=== PATIENT | female | born 1945 | race Native Hawaiian/Other Pacific Islander ===

== ENCOUNTER 2018-03-13 20:48 | Emergency (ER) | payer OTHER ==
[~2018-03-13] VITALS: Ht 165.1 cm; Wt 70.3 kg
[2018-03-13 22:54] LABS: PLATELET COUNT 255 K/uL (152-353)
[2018-03-13 22:59] LABS: POTASSIUM 4.8 mmol/L (3.6-5.2)
[2018-03-14] VITALS: BP 135/79; TEMP 98.6
[2018-03-14] MEDS ORDERED: REMERON SOLTAB15 MG PO (02:37)
[2018-03-14] MEDS ORDERED: ACID CONTROL MA20 MG PO (02:38)
[2018-03-14] MEDS ORDERED: CARV3.12 PO (02:39)
[2018-03-14] MEDS ORDERED: DOCU100C10 PO (02:40)
[2018-03-14] MEDS ORDERED: PREDNISONE10 M1 PO (02:41)
[2018-03-14] MEDS ORDERED: POLYETH GLYC3350 NF PO (02:44)
[2018-03-14] MEDS ORDERED: ARIPIPRAZOLE30 MG PO (02:46)
[2018-03-14] MEDS ORDERED: LAMICTAL25 MG PO (02:48)
[2018-03-14] MEDS ORDERED: LORA0.5T17 PO (02:50)
[2018-03-14] MEDS ORDERED: AMLODIPINE BESYLATE PO (02:51)
[2018-03-14] MEDS ORDERED: METOCLOPRAMIDE O5 MG PO (02:52)
[2018-03-14] MEDS ORDERED: CALCIUM PO (03:17)
[2018-03-14] MEDS ORDERED: VITAMIN PO (03:17)
[2018-03-14] MEDS ORDERED: [UNRECOGNIZED DRUG - OTHER] PO (03:20)
[2018-04-03] MEDS ORDERED: SILV1CRE EX (08:55)
[2018-04-03] MEDS ORDERED: METR250T19 PO (08:55)
[2018-04-03] MEDS ORDERED: ZINC220C4 PO (08:55)
[2018-04-03] MEDS ORDERED: ASCO500T18 PO (08:55)
[2018-04-03] MEDS ORDERED: MULTTAB52 PO (08:55)
[2018-04-08] MEDS ORDERED: FURO40TA93 PO (15:21)
[2018-04-08] MEDS ORDERED: PRED10TA27 PO (15:21)
[2018-04-08] MEDS ORDERED: DUONEB 0.5-2.5MG/3ML INH (15:21)
[2018-04-08] MEDS ORDERED: INSUINJ20 SC (15:21)
[2018-04-08] MEDS ORDERED: ONDA4TAB3 PO (15:21)
[2018-04-08] MEDS ORDERED: POTA20TA4 PO (15:21)
[2018-04-08] MEDS ORDERED: [UNRECOGNIZED DRUG - CODE] TOP (15:21)
[2018-04-20] MEDS ORDERED: ONDA4TAB3 PO (09:32)
[2018-04-21] MEDS ORDERED: PANTOPRAZOLE 40MG TA PO (07:03)
[2018-04-21] MEDS ORDERED: ARIPIPRAZOLE30 MG PO (07:03)
[2018-04-21] MEDS ORDERED: LAMICTAL25 MG PO (07:03)
[2018-04-21] MEDS ORDERED: CARV3.12 PO (07:04)
[2018-04-21] MEDS ORDERED: ASCO500T18 PO (07:04)
[2018-04-21] MEDS ORDERED: AMLODIPINE BESYLATE PO (07:04)
[2018-04-21] MEDS ORDERED: DIVALPROEX500 M1 PO (07:05)
[2018-04-21] MEDS ORDERED: DOCU100C10 PO (07:05)
[2018-04-21] MEDS ORDERED: DUONEB 0.5-2.5MG/3ML INH (07:05)
[2018-04-21] MEDS ORDERED: INSUINJ20 SC (07:07)
[2018-04-21] MEDS ORDERED: METOCLOPRAMIDE O5 MG PO (07:08)
[2018-04-21] MEDS ORDERED: MULTTAB52 PO (07:11)
[2018-04-21] MEDS ORDERED: [UNRECOGNIZED DRUG - CODE] TOP (07:11)
[2018-04-21] MEDS ORDERED: NYST100016 TOP (07:11)
[2018-04-21] MEDS ORDERED: SILVADENE1 % EX (07:12)
[2018-04-21] MEDS ORDERED: POLYETH GLYC3350 NF PO (07:12)
[2018-04-21] MEDS ORDERED: PRED10TA27 PO (07:12)
[2018-04-21] MEDS ORDERED: ZINC220C4 PO (07:13)
== END 2018-03-14 | disposition other institution (70) ==
LOC: ED 20:48
PROVIDERS: Internal Medicine
DX: F31.89 Other bipolar disorder (principal); R45.1 Restlessness and agitation; I10 Essential (primary) hypertension; Z04.6 Encounter for general psychiatric examination, requested by authority
CPT/HCPCS: 36415; 80053; 81000; 85027; 87077; 87086; 87088; 87186; 93005; 99285

== ENCOUNTER 2018-03-26 08:24 | Inpatient (IN) | payer OTHER ==
[2018-03-26] VITALS (25 sets, daily range): BP systolic 99–137; BP diastolic 48–96; TEMP 99.3–100.4; Ht 165.1 cm; Wt 80.3 kg
[~2018-03-26] VITALS: Ht 165.1 cm; Wt 80.3 kg
[~2018-03-26 08:24] MED LIST: ACID CONTROL MA20 MG PO; AMLODIPINE BESYLATE PO; ARIPIPRAZOLE30 MG PO; CALCIUM PO; CARV3.12 PO; DOCU100C10 PO; LAMICTAL25 MG PO; LORA0.5T17 PO; METOCLOPRAMIDE O5 MG PO; POLYETH GLYC3350 NF PO; PREDNISONE10 M1 PO; REMERON SOLTAB15 MG PO; VITAMIN PO; [UNRECOGNIZED DRUG - OTHER] PO
[2018-03-26 09:47] LABS: POTASSIUM 4.6 mmol/L (3.6-5.2)
[2018-03-26 13:01] LABS: PLATELET COUNT 200 K/uL (152-353)
[2018-03-27] VITALS (21 sets, daily range): BP systolic 98–146; BP diastolic 39–98; TEMP 97.7–100.2
[2018-03-27 08:12] LABS: PLATELET COUNT 166 K/uL (152-353)
[2018-03-27 09:22] LABS: POTASSIUM 3.8 mmol/L (3.6-5.2)
[2018-03-28] VITALS (23 sets, daily range): BP systolic 110–179; BP diastolic 43–86; TEMP 99–100
[2018-03-28 06:40] LABS: PLATELET COUNT 193 K/uL (152-353)
[2018-03-28 07:25] LABS: POTASSIUM 2.9 mmol/L (3.6-5.2)
[2018-03-29] VITALS (25 sets, daily range): BP systolic 106–187; BP diastolic 7–96; TEMP 97–101.8
[2018-03-29 06:57] LABS: PLATELET COUNT 185 K/uL (152-353)
[2018-03-29 07:12] LABS: POTASSIUM 2.8 mmol/L (3.6-5.2)
[2018-03-30] VITALS (23 sets, daily range): BP systolic 121–195; BP diastolic 65–110; TEMP 97.2–98.2
[2018-03-30 06:29] LABS: PLATELET COUNT 178 K/uL (152-353)
[2018-03-30 06:44] LABS: POTASSIUM 3.7 mmol/L (3.6-5.2)
[2018-03-31] VITALS (23 sets, daily range): BP systolic 135–191; BP diastolic 61–95; TEMP 97.8–99.5
[2018-03-31 06:40] LABS: POTASSIUM 3.5 mmol/L (3.6-5.2)
[2018-03-31 07:24] LABS: PLATELET COUNT 212 K/uL (152-353)
[2018-03-31] MEDS ORDERED: LORA0.5T17 PO (18:43)
[2018-04-01] VITALS (22 sets, daily range): BP systolic 133–164; BP diastolic 63–89; TEMP 97.9–98.6
[2018-04-01 06:50] LABS: PLATELET COUNT 255 K/uL (152-353)
[2018-04-01 07:16] LABS: POTASSIUM 2.9 mmol/L (3.6-5.2)
[2018-04-01] MEDS ORDERED: DIVALPROEX500 M1 PO (21:13)
[2018-04-01] MEDS ORDERED: TRAZ100T PO (21:17)
[2018-04-02] VITALS (22 sets, daily range): BP systolic 140–168; BP diastolic 71–97; TEMP 98–98.9
[2018-04-02 08:15] LABS: PLATELET COUNT 371 K/uL (152-353)
[2018-04-02 08:40] LABS: POTASSIUM 3.2 mmol/L (3.6-5.2)
[2018-04-03] VITALS (12 sets, daily range): BP systolic 134–159; BP diastolic 63–102; TEMP 97.9–98.5
[2018-04-03 05:55] LABS: PLATELET COUNT 385 K/uL (152-353)
[2018-04-03 06:18] LABS: POTASSIUM 4.4 mmol/L (3.6-5.2)
[2018-04-03] MEDS ORDERED: ZINC220C4 PO (08:55)
[2018-04-03] MEDS ORDERED: MULTTAB52 PO (08:55)
[2018-04-03] MEDS ORDERED: SILV1CRE EX (08:55)
[2018-04-03] MEDS ORDERED: ASCO500T18 PO (08:55)
[2018-04-03] MEDS ORDERED: METR250T19 PO (08:55)
[2018-04-08] MEDS ORDERED: FURO40TA93 PO (15:21)
[2018-04-08] MEDS ORDERED: [UNRECOGNIZED DRUG - CODE] TOP (15:21)
[2018-04-08] MEDS ORDERED: PRED10TA27 PO (15:21)
[2018-04-08] MEDS ORDERED: INSUINJ20 SC (15:21)
[2018-04-08] MEDS ORDERED: DUONEB 0.5-2.5MG/3ML INH (15:21)
[2018-04-08] MEDS ORDERED: POTA20TA4 PO (15:21)
[2018-04-08] MEDS ORDERED: ONDA4TAB3 PO (15:21)
[2018-04-20] MEDS ORDERED: ONDA4TAB3 PO (09:32)
[2018-04-21] MEDS ORDERED: LAMICTAL25 MG PO (07:03)
[2018-04-21] MEDS ORDERED: ARIPIPRAZOLE30 MG PO (07:03)
[2018-04-21] MEDS ORDERED: PANTOPRAZOLE 40MG TA PO (07:03)
[2018-04-21] MEDS ORDERED: AMLODIPINE BESYLATE PO (07:04)
[2018-04-21] MEDS ORDERED: CARV3.12 PO (07:04)
[2018-04-21] MEDS ORDERED: ASCO500T18 PO (07:04)
[2018-04-21] MEDS ORDERED: DOCU100C10 PO (07:05)
[2018-04-21] MEDS ORDERED: DUONEB 0.5-2.5MG/3ML INH (07:05)
[2018-04-21] MEDS ORDERED: DIVALPROEX500 M1 PO (07:05)
[2018-04-21] MEDS ORDERED: INSUINJ20 SC (07:07)
[2018-04-21] MEDS ORDERED: METOCLOPRAMIDE O5 MG PO (07:08)
[2018-04-21] MEDS ORDERED: MULTTAB52 PO (07:11)
[2018-04-21] MEDS ORDERED: NYST100016 TOP (07:11)
[2018-04-21] MEDS ORDERED: [UNRECOGNIZED DRUG - CODE] TOP (07:11)
[2018-04-21] MEDS ORDERED: SILVADENE1 % EX (07:12)
[2018-04-21] MEDS ORDERED: POLYETH GLYC3350 NF PO (07:12)
[2018-04-21] MEDS ORDERED: PRED10TA27 PO (07:12)
[2018-04-21] MEDS ORDERED: ZINC220C4 PO (07:13)
== END 2018-04-03 12:05 | disposition other institution (70) | DRG 291 ==
LOC: ICU 08:24
PROVIDERS: Emergency Medicine; ADMIT Nurse Practitioner Family
PROC: 30243N1 Transfusion of Nonautologous Red Blood Cells into Central Vein, Percutaneous Approach (ICD-10-PCS; principal; 2018-03-29)
PROC: 05HM33Z Insertion of Infusion Device into Right Internal Jugular Vein, Percutaneous Approach (ICD-10-PCS; 2018-03-29)
DX: I50.31 Acute diastolic (congestive) heart failure (principal); J18.8 Other pneumonia, unspecified organism; J93.83 Other pneumothorax; J44.0 Chronic obstructive pulmonary disease with (acute) lower respiratory infection; G40.802 Other epilepsy, not intractable, without status epilepticus; E27.1 Primary adrenocortical insufficiency; L03.115 Cellulitis of right lower limb; N89.8 Other specified noninflammatory disorders of vagina; E88.09 Other disorders of plasma-protein metabolism, not elsewhere classified; D64.89 Other specified anemias; E87.6 Hypokalemia; E83.42 Hypomagnesemia; I10 Essential (primary) hypertension; I69.891 Dysphagia following other cerebrovascular disease; R13.19 Other dysphagia; F03.90 Unspecified dementia, unspecified severity, without behavioral disturbance, psychotic disturbance, mood disturbance, and anxiety; E11.9 Type 2 diabetes mellitus without complications; L89.151 Pressure ulcer of sacral region, stage 1; L89.322 Pressure ulcer of left buttock, stage 2; L89.312 Pressure ulcer of right buttock, stage 2
CPT/HCPCS: 36415; 36591; 36600; 80053; 80200; 80202; 81000; 82272; 82550; 82805; 82962; 83605; 83735; 83880; 84484; 85014; 85018; 85027; 86850; 86900; 86901; 86922; 87040; 93005; 94640; 94664; 94760; C1768; J0696; J1200; J1885; J1940; J1956; J2060; J2543; J2920; J3260; J3370; J3475; J3480; J3486; J3490; P9016; P9047

== ENCOUNTER 2018-04-08 16:11 | Inpatient (IN) | payer OTHER ==
[~2018-04-08] VITALS: Ht 33 cm; Wt 73.0 kg
[~2018-04-08 16:11] MED LIST changes: +ASCO500T18 PO; +DIVALPROEX500 M1 PO; +DUONEB 0.5-2.5MG/3ML INH; +FURO40TA93 PO; +INSUINJ20 SC; +METR250T19 PO; +MULTTAB52 PO; +ONDA4TAB3 PO; +POTA20TA4 PO; +PRED10TA27 PO; +SILV1CRE EX; +TRAZ100T PO; +ZINC220C4 PO; +[UNRECOGNIZED DRUG - CODE] TOP
[2018-04-08 17:15] VITALS: BP 131/64
--- NOTE | 2018-04-08 17:30 | NUR ---
RCD PT ALERT RESTLESS EATING 100% DINNER DAUGHTER CALLEDD O2 DECREASED TO 3L
[2018-04-08 19:00] VITALS: BP 124/60
[2018-04-08 20:00] VITALS: BP 117/59; TEMP 98
--- NOTE | 2018-04-08 20:00 | NUR ---
EATING DINER 100% ALERT CALLING FOR DAUGHTER.MONITOR ST BBB DENIES PAIN SOB. 2200 WATCHING TV O2 AT 2L NO CHANGE DENIES PAIN OR SSOB.
[2018-04-08 21:00] VITALS: BP 122/63
[2018-04-08 22:00] VITALS: BP 120/60
[2018-04-08 23:00] VITALS: BP 121/63
--- NOTE | 2018-04-08 23:00 | NUR ---
MONITOR SR/BBB O2 96 %.
[2018-04-09] VITALS (23 sets, daily range): BP systolic 106–143; BP diastolic 52–86; TEMP 97.5–99.5
--- NOTE | 2018-04-09 | NUR ---
TURNED AND POSITIONED MONITOR SR/BBB LAN LEROY
--- NOTE | 2018-04-09 01:00 | NUR ---
RESTING NO C/O PAIN OR SOB O2 2L
--- NOTE | 2018-04-09 02:00 | NUR ---
NO CHANGE RESTING O2 SAT 96
--- NOTE | 2018-04-09 03:09 | NUR ---
RESTING SHORT INTERVALS MONITOR SR O2 2L 2SAT 94
--- NOTE | 2018-04-09 04:00 | NUR ---
MONITOR SR O2SAT 97 N C/O RRSTING O2 AT2L R
[2018-04-09 09:00] LABS: PLATELET COUNT 291 K/uL (152-353)
[2018-04-09 09:24] LABS: POTASSIUM 4.7 mmol/L (3.6-5.2)
--- NOTE | 2018-04-09 11:14 | NUR ---
BLOOD GAS OBTAINED ORDERED AND REPORTED AND WAS TOLD BY SUNDAY KENNEY THAT WE COULD HOLD BIPAP.
--- NOTE | 2018-04-09 12:30 | NUR ---
PT UP IN BED AWAKE TOOK SHORT NAPS, ALERT ASSISTED WITH LUNCH TRAY ATE ABOUT 25 % DARCIE WELL.
--- NOTE | 2018-04-09 15:11 | NUR ---
PT RESTING IN BED, RECIEVED ZOFRAN FOR C/O OF NAUSEA NO VOMITING. DAUGHTER HERE VISITED, BROUGHT PT A COKE TOOK A FEW SIPS DARCIE OK NO COUGH AFTERWARDS. HOB UP. ASSIST NEEDED.
--- NOTE | 2018-04-09 16:18 | NUR ---
PT TURNED AND REPOSITIONED. PT BEGAN CALLING OUT. INC OF BM PT TURNED ON SIDE YELLING OUT, DOES NOT WANT TO BE MOVED. SKIN CARE NOTED ADULT DIAPER WET. NOTED MONTENEGRO HAS COME OUT BALLOON DEFLATED. JOI CARE REPORT TO SUNDAY KEY. WILL LEAVE MONTENEGRO CATH OUT FOR NOW.
--- NOTE | 2018-04-09 17:04 | NUR ---
PATIENT GETTING AGITATED, CALLING WANTS DINNER TRAY WANTS HER CANDY BAR. INCREASED AGITATION. SPOKE WITH BERENICE DURAN. MEDS REORDERED. PT C/O ITCHING WITH GIVE MED FOR ITCHING.
--- NOTE | 2018-04-09 18:36 | NUR ---
PT UP IN BED SPOKE WITH DR ZUNIGA. RECIEVED NEW ORDERS. PT RESTING IN BED HOB UP. PT TALKING, KEEPS REPEARTING HERSELF. PT WANTED TO WAIT AND EAT DINNER LATER.
--- NOTE | 2018-04-09 20:04 | NUR ---
PT IS YELLING CONSTANTLY. PT IS BIPOLAR AND FROM [facility]. PT HAS BEEN GIVEN DEMEROL 25 MG IVSP EARLIER FOR COMPLAINTS OF PAIN. CM WITH SR AND BP STABLE. O2 SATS ARE 99 PERCENT AND PT IS USING OXYGEN VIA NC.
--- NOTE | 2018-04-09 20:56 | NUR ---
PT IS CONSISTANTLY TALKING AND SAYING SAME THINGS OVER AND OVER. ATTEMPT TO ORIENT PT. UNSUCCESSFUL.
--- NOTE | 2018-04-09 22:05 | NUR ---
PT WAS TURNED AND REPOSITIONED TO HER LEFT SIDE. COCCYX IS RED STAGE 2 AND IS BLEEDING.
--- NOTE | 2018-04-09 23:47 | NUR ---
PT STILL CONTINUES TO TALK AND YELL. CONFUSED. CONTINUES TO REPEAT HERSELF OVER AND OVER. ATTEMP MAD TO REORIENT PT BUT SHE DOESNT UNDERSTAND.
[2018-04-10] VITALS (19 sets, daily range): BP systolic 100–135; BP diastolic 40–96; TEMP 98–99.3
--- NOTE | 2018-04-10 01:22 | NUR ---
C/O OF PAIN. MEDICATED WITH DEMEROL 25 MG SIVP. PT REFUSES TO TURN IN BED TO BE CHANGED OF SOILED CHUX. PT REFUSES ANY SIDE TO SIDE MOVEMENT WITH 1 PERSON ASSIST.
--- NOTE | 2018-04-10 01:35 | NUR ---
PT WAS CLEANED AND NEW CHUX AND ADULT DEPENDS WERE APPLIED. PT WITH REDNESS TO COCCYX AND STAGE 2 DECUBITUS. PT IS TOTAL ASSIST AND WILL NOT MOVE LOWER EXT. 2 PERSON ASSIST TO CHANGE PT. ORAL CARE GIVEN. PT STILL WITH CONFUSION AND REPEATS SENTENCES OVER AND OVER.
--- NOTE | 2018-04-10 03:53 | NUR ---
PT HAS RESTED WITH EYES CLOSED LAST 2 HOURS. O2 SAT IS 99 PERCENT.
--- NOTE | 2018-04-10 08:28 | NUR ---
PATIENT AWAKE TALKING, PATIENT REPEATS HERSELF OFTEN. PATIENT TURNED AND REPOSITIONED INC OF BM AND URINE PATIENT CLEANED WIPED WITH THERAWORX WIPES APPLIED CALAZIME OINT TO BUTTOCKS, RED AREAS COCCYX INNER LEGS GROIN. BREAKDOWN JOI CARE DONE. PATIENT REFUSES TO BE TURNED PUSHING AGAINT NURSE YELLING OUT. PATIENT REFUSED LABS AND REFUSING BREAKFAST THIS AM. DR MUÑOZ STOPPED BY RECIEVED REPORT NO NEW ORDERS.
--- NOTE | 2018-04-10 10:17 | NUR ---
PT RECIEVED HER MEDS EARLIER DARCIE WELL. TAKING PO FLUIDS WELL. REFUSING BREAKFAST. RECIEVED ORDERS FOR ABG. ASSISTED RESP DEPT DRAWING ABG, GOOD BLOOD RETURN NAIMA AM LABS ALONG WITH BLOOD DRAW X 1 STICK PT DARCIE WELL. COOPERATIVE.
[2018-04-10 10:18] LABS: PLATELET COUNT 286 K/uL (152-353)
--- NOTE | 2018-04-10 10:30 | NUR ---
C/O OF NAUSEA, NO VOMITING RECIEVED ZOFRAN 4 MG IVP FOR NAUSEA.
[2018-04-10 10:41] LABS: POTASSIUM 4.4 mmol/L (3.6-5.2)
--- NOTE | 2018-04-10 11:00 | NUR ---
CRITICAL LABS CALLED, ELEVATED CARBON DIOXIDE 100 REPORT TO CRISELDA VERA NP. WILL COME TO SEE PATIENT.
--- NOTE | 2018-04-10 11:45 | NUR ---
CRISELDA VERA TANK WAGON OPERATOR HERE CHECKED PT. RECIEVED NEW ORDERS. PT'S SAT DROPPED EARLIER CHANGED TO VENTI MASK AT 35 %. PT STATED THAT SHE HAD TO THROW UP. NO VOMITING PT DID COUGH UP PHLEM. REPOSITIONED IN BED HOB UP.
--- NOTE | 2018-04-10 12:05 | NUR ---
PT C/O ABOUT HURTING ALL OVER MOANING CRYING OUT RECIEVED DEMEROL 25 SLOW IVP FOR PAIN. ASSISTED PT WITH TURNING INC OF URINE AND BM JOI CARE DONE TURNED TO RIGHT. HOB UP.
--- NOTE | 2018-04-10 13:43 | NUR ---
PT AWAKEN REMOVED VENTI MASK SAT ON VENTI MASK 95%.. CHANGED TO NC AT 2L SATS REMAIN GOOD AT 96% RESP EVEN NO WHEEZING WILL START PT ON BREATHING TX. HOB UP. MEDS EFFECTIVE FOR PAIN PT REFUSING MEALS WILL ENCOURAGE PT TO EAT.
--- NOTE | 2018-04-10 13:53 | NUR ---
ENCOURAGED PT TO EAT. ONLY TOOK FEW BITES, PT KEEPS SAYING SHE DOSEN'T WANT TO EAT.
--- NOTE | 2018-04-10 14:45 | NUR ---
PATIENT C/O ITCHING RECIEVED HYDROXYZINE 25 MG PO. PT ATE CUP PUDDING. PT KEEPS C/O "I'M THROWING UP" NO EMESIS NO GAGING NOTED. PT KEEPS ASKING FOR HER DAUGHTER. TOLD HER HER DAUGHTER IS AT [employer]. PATIENT KEEPS ASKING SAME QUESTIONS AND PHRASES OVER AND OVER.
--- NOTE | 2018-04-10 14:52 | NUR ---
CHECKED IV LEFT AC, ARM SWOLLEN RED UP ON PILLOW. IV WILL NOT FLUSH. IV REMOVED CATH INTACT. CHECKED FEET HEEL HAS PRESSURE SPOTS KEEPING UP ON PILLOWS. PT HAS REDNESS RIGHT LOWER LEG. NOT WEARING SCD'S. PT DOSN'T LIKE TO BED MOVED. REPOSITIONED PT EVERY TWO TO THREE HRS FLOAT HEELS. REPORT TO CRISELDA VERA NP. WILL START PT ON LOVENEOX SQ.
--- NOTE | 2018-04-10 15:59 | NUR ---
RESTING EASIER X RAY DEPT HERE FOR CHEST 1 VIEW PT RESTING EYES CLOSED RESP EVEN SAT 96% ON 2 L NC. HOB UP HIGH.
--- NOTE | 2018-04-10 19:21 | NUR ---
PATIENT RESTING EASIER THIS AFTERNOON, TALKED WITH DAUGHTER ON PHONE. REPORT TO ONCOMING SHIFT.
[2018-04-11] VITALS (19 sets, daily range): BP systolic 118–146; BP diastolic 45–77; TEMP 97.8–98.8
--- NOTE | 2018-04-11 01:15 | NUR ---
PT INCONTINENT OF URINE. PT WAS CLEANED . LINENS WERE CHANGED. PT WITH STAGE 3 DECUBITUS TO PT RIGHT BUTTOCKS. AREA WAS CLEANED AND CALMAZINE WAS APPLIED. PT WAS POSITIONED HIGH IN BED. PT WAS TURNED TO HER LEFT SIDE WITH WEDGE TO BACK TO PROMOTE HEALING AND PROMOTE CIRCULATION. PT WAS GIVEN ATARAX 25MG PO FOR ITCHING.
--- NOTE | 2018-04-11 01:33 | NUR ---
PT IS CONTINUING TO LAY ON HER LEFT SIDE. LEAVING DECUBITUS TO AIR AND NO PRESSURE.
--- NOTE | 2018-04-11 01:49 | NUR ---
RESP TREATMENT WAS GIVEN.
--- NOTE | 2018-04-11 07:15 | NUR ---
REPORT FROM PM STAFF. PT RESTING ON R SIDE WITH HOB UP. PT DOZING WITH EYES CLOSED AT INTERVALS FOLLED BY PT CALLING OUT,'I WANT TO GO BACK TO [employer] IN [place] TO LIVE, CAN I GO'. DISCUSSED WITH PT THE NEED TO WAIT FOR THE DR TO COME & TALK TO HIM. PT WITH MULTIPLE SKIN TEARS ON ARMS & LEGS,PT WITH DECUBITUS ON SACRUM. JOI AREA RED & PEELING IN PLACES WITH HEALING DECUBITUS UNDER R BUTTOCK. REDNESS TO BOTH HEALS,R HEEL AREA RED STAGE 1.
--- NOTE | 2018-04-11 09:23 | NUR ---
PT REFUSED TO EAT BREAKFAST,HAS REFUSED MULTIPLE TIMES. PT C/O 'ITCHING MY ARM',PT INDICATEING L FA WITH HEALING SKIN TEAR,INSTRUCTED NOT TO SCRATCH,ATARAX 25 MG PO GIVEN.
[2018-04-11 09:43] LABS: POTASSIUM 4.8 mmol/L (3.6-5.2)
[2018-04-11 10:18] LABS: PLATELET COUNT 287 K/uL (152-353)
--- NOTE | 2018-04-11 14:26 | NUR ---
DISCUSSED CO2 LEVELS WITH DR OLIVA AGAIN. DISCUSSED DX ADDISONS DISEASE. NEW ORDERS.
--- NOTE | 2018-04-11 15:30 | NUR ---
PT INCONTINENT OF URINE,FLOODING THE BED,CHUX & SOAKING HER GOWN.PT WITH DECUBITUS ON HER COCCYX ,BOTH BUTTOCKS & GROIN ARE RED & PEELING WTH A YEASTY APPEARING RASH. REPORTED TO DR ANGIE MUÑOZ. 16FR MONTENEGRO CATHETER INSERTED PER ASCEPTIC TECHNIQUE PER MARY MILLER LPN.PERICARE,PT SPONGED OFF & LINEN CHANGE.NYSTOP POWDER TO PERIAREA.WOUND TO COCCYX STAGE 2 PRESSURE AREA WITH REDNESS SURROUNDING OPEN AREA,BLODDY WHEN CLEANED WITH NS,COVERED WITH SILVADENE & ABD PAD.
--- NOTE | 2018-04-11 16:03 | NUR ---
PT C/O 'I'M ITCHING AGAIN' INDICATING L FA NEAR ELBOW,HEALING SKIN TEAR. ATARAX 25 MG PO GIVEN.
--- NOTE | 2018-04-11 16:15 | NUR ---
DR OLIVA IN TO SEE PT.
--- NOTE | 2018-04-11 20:05 | NUR ---
PT AWAKE, ALERT, AND ORIENTED TO PERSON/SELF WITH NO S/S OF PAIN OR DISTRESS NOTED. SITTING UP IN BED WATCHING TV, TALKATIVE WITH STAFF AND ASKING ALOT OF QUESTIONS ABOUT HER CARE. SKIN WARM AND DRY, RADIAL AND PEDAL PULSES INTACT, BS+, PERRL, 16F MONTENEGRO PATENT DRAINING TO BEDSIDE WITH CLEAR YELLOW URINE NOTED IN BAG, 22G IV LOCK INTACT TO L AC WITH NO PROBLEMS NOTED TO SITE, RESP RATE NONLABORED WITH O2 AT 2LPM VIA NC AND O2 SAT OF 94-95%, LUNGS CLEAR IN UPPER AND DIMINISHED IN LOWER LOBES, NOTE SWELLING TO L HAND, NOTE BRUISING ALL OVER PT'S ARMS AND HANDS, SKIN VERY THIN AND FRAILE EASILY TORN WHEN TOUCHED OR BUMPED, NOTE MULTIPLE SKIN TEARS TO ARMS, WOUNDS TO ARMS, R LOWER LEG AND BUTTOCKS. PT COOPERATIVE. WILL MONITOR CLOSELY, RAILS UP X3, BED IN LOW POSITION, ENCOURAGED TO CALL NEEDED.
--- NOTE | 2018-04-11 21:00 | NUR ---
PT ASKED ABOUT HER DINNER TRAY SINCE SHE DID NOT WANT TO EAT EARLIER AND SHE STILL STATES SHE DOES NOT WANT IT. PT DRANK NUTRITIONAL DRINK WITH HER PO NIGHTLY MEDS, NO PROBLEMS NOTED, WILL MONITOR CLOSELY, RAILS UP, BED IN LOW POSITION.
--- NOTE | 2018-04-11 22:14 | NUR ---
PT REMAINS AWAKE TALKING TO STAFF OFTEN, NO S/S OF DISTRESS OR OTHER PROBLEMS NOTED, IV LOCK INTACT TO L AC WITH NO PROBLEMS NOTED TO SITE, O2 AT 2LPM VIA NC, RESP RATE NONLABORED, MONTENEGRO PATENT DRAINING TO BEDSIDE, HEEL PROTECTORS IN USE, DRESSINGS INTACT TO ARMS LEG AND BUTTOCKS, PT REPEATEDLY ASKING STAFF IF SHE CAN GO BACK TO "[place]" AND ASKING ABOUT HER DAUGHTER, REORIENTED NEEDED, REPOSITIONED TO L SIDE(PT GOT UPSET SCARED THAT SHE WILL FALL OFF THE BED, REASSURED PT). WILL MONITOR CLOSELY, RAILS UP X3, BED IN LOW POSITION.
--- NOTE | 2018-04-11 23:05 | NUR ---
REMAINS AWAKE TALKATIVE WITH STAFF AND STILL WORRIED AND ASKING IF SHE CAN GO BACK TO LIVE AT [employer]. NO S/S OF PAIN OR DISTRESS NOTED, WILL MONITOR CLOSELY, RAILS UP X3, BED IN LOW POSITION, ENCOURAGED TO CALL NEEDED.
[2018-04-12] VITALS (24 sets, daily range): BP systolic 115–154; BP diastolic 55–84; TEMP 97.6–99
--- NOTE | 2018-04-12 02:20 | NUR ---
PT RESTING QUIETLY IN BED WITH EYES CLOSED, NO S/S OF PAIN OR DISTRESS NOTED, RESP RATE NONLABORED, O2 AT 2LPM VIA NC WITH SAT OF 98%, 16F MONTENEGRO PATENT DRAINING TO BEDSIDE, 22G IV LOCK INTACT TO L AC WITH NO PROBLEMS NOTED TO SITE, DEPEND CLEAN, SOLDERER BARREL RIBS IN USE, VITALS BEING MONITORED, HEEL PROTECTORS IN USE, REPOSITIONED TO R, FEET AND L HAND ELEVATED ON PILLOW. PT AROUSED TO TWO STAFF MEMBERS BEING AT BEDSIDE TO REPOSITION HER, PT WORRIED ABOUT FALLING OFF THE BED, REASSURED PT BEFORE REPOSITIONING HER. WILL MONITOR CLOSELY, RAILS UP X3, BED IN LOW POSITION.
--- NOTE | 2018-04-12 04:05 | NUR ---
RESTING QUIETLY IN BED WITH EYES CLOSED, NO S/S OF PAIN OR DISTRESS NOTED, IV LOCK INTACT WITH NO PROBLEMS NOTED TO SITE, MONTENEGRO PATENT DRAINING TO BEDSIDE, RESP RATE NONLABORED, O2 AT 2LPM VIA NC, VITALS BEING MONITORED, BEDSPREAD FOLDER IN USE, REPOSITIONED AND FEET ELEVATED ON PILLOW, HEEL PROTECTORS IN USE, RAILS UP X3, BED IN LOW POSITION.
[2018-04-12 05:48] LABS: PLATELET COUNT 297 K/uL (152-353)
--- NOTE | 2018-04-12 06:49 | NUR ---
RESTING WITH EYES CLOSED, NO S/S OF PAIN OR DISTRESS NOTED AT THIS TIME, IV LOCK INTACT, MONTENEGRO PATENT, VITALS BEING MONITORED, RESP RATE NONLABORED, O2 AT 2LPM VIA NC. FEET ELEVATED ON PILLOW, L HAND ELEVATED ON PILLOW, WILL MONITOR, RAILS UP X3, BED IN LOW POSITION.
--- NOTE | 2018-04-12 07:00 | NUR ---
REPORT FROM PM STAFF PT RESTING IN SF-HF WITH EYES CLOSED.RESP 20BPM EVEN & UNLABORED,O2 SAT 99% ON O2 AT 2L/NC.IV SL INTACT LAC.MONTENEGRO TO BSD WITH CL YELLOW URINE.
--- NOTE | 2018-04-12 09:30 | NUR ---
PT AWAKENS BRIEFLY & BACK TO SLEEP.
--- NOTE | 2018-04-12 11:00 | NUR ---
PT REFUSED BREAKFAST EARLIER. PT MORE AWAKE & REQUESTED 'TO EAT MY BREAKFAST'. MEAL WARMED & FED TO PT 25% OF MEAL. PT PLEASANT.
--- NOTE | 2018-04-12 13:00 | NUR ---
PT FED 25 % OF LUNCH. REPEATED ASKING 'CAN I MOVE BACK TO [place] TO LIVE?'.
--- NOTE | 2018-04-12 15:59 | NUR ---
DR CAMARA IN TO SEE PT. REVIEWED LABS, NO NEW ORDERS.
--- NOTE | 2018-04-12 16:30 | NUR ---
BATH & PERSONAL CARE,WOUND CARE, ADDITIONAL PEELIG OF SKIN ON BUTTOCKS, SILVADENE TO OPEN AREAS,COVERED DECUBES & SKIN TEARS,NYSTOP TO JOI AREA.
--- NOTE | 2018-04-12 17:45 | NUR ---
FED PT DINNER.NO C/O .
--- NOTE | 2018-04-12 20:16 | NUR ---
PT AWAKE, ALERT, AND ORIENTED TO PERSON/SELF. REORIENTED NEEDED, NO S/S OF PAIN OR DISTRESS NOTED, PT DENIES ANY PAIN OR PROBLEMS, SKIN WARM AND DRY, RADIAL AND PEDAL PULSES INTACT, BS+, PERRL, LUNGS CLEAR IN UPPER AND DIMINISHED IN LOWER LOBES, O2 AT 2LPM VIA NC, DATA SME IN USE WITH SR NOTED IN 90s, VITALS BEING MONITORED, 16F MONTENEGRO PATENT DRAINING TO BEDSIDE WITH CLEAR MEDIUM YELLOW COLORED URINE NOTED IN BAG, DRESSINGS INTACT TO MULTIPLE WOUNDS/SKIN TEARS ON PT'S ARMS AND LEGS NOTE PRESSURE WOUND TO PT'S BUTTOCKS(SEE ASSESSMENT FOR MORE INFO ABOUT PT'S SKIN), NOTE R LOWER LEG RED COMPARED TO L LEG, IRRITATION(BEING TREATED FOR YEAST) IN GROIN, 22G IV LOCK INTACT TO L AC WITH NO PROBLEMS NOTED TO SITE, ELEVATED L HAND ON PILLOW DUE TO EDEMA TO HAND AND FA, FEET ELEVATED OFF OF BED ON PILLOW, SKIN PRECAUTIONS IN USE AND PT TURNED Q 2 HOURS. TALKATIVE WITH SHINGLE SHEARING MACHINE OPERATOR AND REPEATEDLY ASKING ABOUT GOING TO "[employer]" AND SAYING SHE DOES NOT WANT TO EAT DINNER. REORIENTED PT AND TOLD HER WHAT TIME IT WAS AND THAT SHE HAS ALREADY HAD DINNER TONIGHT. WILL CONTINUE TO MONITOR CLOSELY, RAILS UP X3, BED IN LOW POSITION, REPOSITIONED TO HER BACK.
--- NOTE | 2018-04-12 22:30 | NUR ---
PT AWAKE LAYING IN BED WITH NO S/S OF PAIN OR DISTRESS NOTED, DENIES ANY NEEDS, RESP RATE NONLABORED/NORMAL, O2 AT 2LPM VIA NC, MONTENEGRO PATENT DRAINING TO BEDSIDE, MECHANICAL APPRENTICE IN USE, VITALS BEING MONITORED. VERY TALKATIVE WITH MANAGER FLIGHT OPERATIONS REPEATEDLY CALLING "NURSE" AND ASKING IF SHE CAN GO TO "[facility]", ASKING IF SHE HAS THE HEART MONITOR ON AND HOW LONG DOES SHE WEAR IT, AND ABOUT HER IV "IS MY IV STILL IN?". REORIENTED PT NEEDED. VERY CHEERFUL WHEN TALKING TO STAFF. REPOSITIONED TO R SIDE, FEET ELEVATED ON PILLOW AND L HAND ELEVATED ON PILLOW(TO HELP WITH EDEMA), SKIN PRECAUTIONS IN USE, HOB REMAINS ELEVATED, BED IN LOW POSITION, RAILS UP X3, WILL MONITOR CLOSELY.
[2018-04-13] VITALS (22 sets, daily range): BP systolic 116–1322; BP diastolic 62–81; TEMP 97.6–98.2
--- NOTE | 2018-04-13 00:20 | NUR ---
PT RESTING QUIETLY IN BED WITH EYES CLOSED, NO S/S OF PAIN OR DISTRESS NOTED, RESP RATE 16 NONLABORED, O2 AT 2LPM VIA NC WITH SAT OF 95-96%, TACK PICKER IN USE, VITALS BEING MONITORED, 16F MONTENEGRO PATENT DRAINING TO BEDSIDE, AROUSES BRIEFLY AND DENIES ANY NEEDS, REPOSITIONED TO BACK, FEET AND L ARM ELEVATED ON PILLOWS, DRESSINGS DRY AND INTACT TO MULTIPLE SKIN TEARS/WOUNDS, WILL MONITOR CLOSELY, RAILS UP X3, BED IN LOW POSITION.
--- NOTE | 2018-04-13 04:16 | NUR ---
PT RESTING QUIETLY IN BED WITH EYES CLOSED, NO S/S OF PAIN OR DISTRESS NOTED, RESP RATE NONLABORED/NORMAL, O2 AT 2LPM VIA NC, MONTENEGRO PATENT DRAINING TO BEDSIDE, IV LOCK INTACT TO L AC WITH NO PROBLEMS NOTED TO SITE FLUSHED EASILY WITH 10ML NS, DESIGN LEADER IN USE, VITALS BEING MONITORED, REPOSITIONED TO BACK, FEET AND L HAND ELEVATED ON PILLOWS, WILL MONITOR CLOSELY, RAILS UP X3, BED IN LOW POSITION.
--- NOTE | 2018-04-13 06:29 | NUR ---
PT RESTING WITH EYES CLOSED, NO S/S OF PAIN OR DISTRESS NOTED, IV LOCK INTACT WITH NO PROBLEMS NOTED TO SITE, RESP RATE NONLABORED, O2 AT 2LPM VIA NC WITH SAT OF 97%, MONTENEGRO PATENT DRAINING TO BEDSIDE, HOG RINGER IN USE, VITALS STABLE, FEET AND L HAND ELEVATED ON PILLOWS NOTE SWELLING TO L HAND HAS DECREASED SINCE START OF SHIFT. WILL MONITOR, RAILS UP X3, BED IN LOW POSITION.
--- NOTE | 2018-04-13 06:47 | NUR ---
UNABLE TO WEIGH PT THIS MORNING AND YESTERDAY MORNING DUE TO BED SHOWS NEGATIVE NUMBER WHEN YOU TRY TO WEIGH PT.
[2018-04-13 06:58] LABS: PLATELET COUNT 313 K/uL (152-353)
--- NOTE | 2018-04-13 07:00 | NUR ---
PT LYING IN BED RESTING QUIETLY. RESP EVEN AND UNLABORED. NO S/S OF DISTRESS NOTED AT PRESENT.
[2018-04-13 07:39] LABS: POTASSIUM 4.7 mmol/L (3.6-5.2)
--- NOTE | 2018-04-13 09:00 | NUR ---
PT AWAKE AND CONFUSED. PT TALKATIVE. NO SIGNS SYMPTOMS OF DISTRESS NOTED. MONTENEGRO PATENT AND DRANING CLEAR YELLOW URINE.
--- NOTE | 2018-04-13 09:21 | NUR ---
DR LUCIAN BLOCK IN TO SEE PT. REVIEWED LABS. NO NEW ORDERS GIVE AT PRESENT.
--- NOTE | 2018-04-13 09:25 | NUR ---
WOUND TO SACRAL DESCRIBED TO DR. LUCIAN BLOCK ON SHAPE AND APPEARANCE. NOT VIEWED BY MD. NO NEW ORDERS GIVEN FOR WOUND.
--- NOTE | 2018-04-13 11:00 | NUR ---
PT LYING IN BED, AWAKE AND TALKATIVE. BLOOD SUGAR CHECKED. NO S/S OF DISTRESS NOTED.
--- NOTE | 2018-04-13 13:00 | NUR ---
PT LYING IN BED WATCHING TV. PT TALKATIVE. NO S/S OF DISTRESSS NOTED. PT ATE ABOUT 50% OF LUNCH.
--- NOTE | 2018-04-13 15:00 | NUR ---
WOUND CARE COMPLETED TO ALL WOUNDS. PT HAD BM. PT CLEANED AND TURNED. PT TOLERATED WELL. NO S/S OF DISTRESS NOTED. WILL CONTINUE TO MONITOR.
--- NOTE | 2018-04-13 17:30 | NUR ---
PT LYING IN BED. ATE ABOUT 10% OF MEAL AND THEN STATES SHE DOES NOT WANT ANYMORE. PT KEEPS DOZING OFF AND ON. WILL CONTINUE TO MONITOR.
--- NOTE | 2018-04-13 20:05 | NUR ---
PT FOUND RESTING WITH EYES CLOSED, AROUSES AND IS ALERT AND ORIENTED TO PERSON/SELF, REORIENTED NEEDED(PT DOES KNOW SHE IS AT SOME KIND OF MEDICAL FACILITY AND IS SICK), SKIN WARM AND DRY, RADIAL AND PEDAL PULSES INTACT, BS+, 22G IV LOCK INTACT TO L AC WITH NO PROBLEMS NOTED TO SITE, PERRL, 16F MONTENEGRO PATENT DRAINING TO BEDSIDE WITH CLEAR MEDIUM YELLOW URINE NOTED IN BAG, LUNGS CLEAR TO AUSCULTATION, O2 AT 2LPM VIA NC WITH SAT OF 95-97%, DRESSINGS DRY AND INTACT TO MULTIPLE WOUNDS ON BUTTOCKS BOTH ARMS R FOOT/LEG, BOTH ARMS RED AND HAVE SOME BRUISING/DISCOLORATION, L HAND SLIGHTLY SWOLLEN ALONG WITH FOREARM AND ELBOW AREAS(ELEVATED ON PILLOW NOW), REPOSITIONED TO BACK, FEET ELEVATED ON PILLOWS. SKIN PRECAUTIONS IN USE. WILL MONITOR, RAILS UP X3, BED IN LOW POSITION. PT REPEATEDLY ASKING ABOUT WHERE HER DAUGHTER IS AT AND IF SHE IS COMING TO SEE HER, ALSO ASKS LOAN DOCUMENTS CLOSER OFTEN "WHAT ARE YA DOING?".
--- NOTE | 2018-04-13 21:26 | NUR ---
PT AWAKE WATCHING TV, REPEATEDLY ASKING BENCH TOOL MAKER ABOUT HER MEDICATIONS AND ABOUT BEING TURNED. PT EDUCATED MULTIPLE TIMES ABOUT HER CARE AND MEDS. DENIES ANY PAIN, C/O "ITCHING BAD" ON HER BACK WHERE PT HAS RASH(ALSO ON BOTTOM AND IN GROIN, GROIN RED IRRITATED AND PEELING SOME). GAVE NIGHTLY MEDICATIONS PO WITH NUTRITIONAL DRINK(PT NOT EATING WELL) ALONG WITH VISTARIL 25MG PO PRN FOR ITCHING. WILL MONITOR CLOSELY, RAILS UP, BED IN LOW POSITION.
[2018-04-14] VITALS (11 sets, daily range): BP systolic 124–143; BP diastolic 64–77; TEMP 97.6–97.9
--- NOTE | 2018-04-14 00:04 | NUR ---
RESTING QUIETLY IN BED WITH EYES CLOSED, NO S/S OF PAIN OR DISTRESS NOTED, 22G IV LOCK INTACT TO L AC(FLUSHED EASILY EARLIER BEFORE AND AFTER IV MEDICATION WITH 10ML NS), MONTENEGRO PATENT DRAINING TO BEDSIDE, RESP RATE 18 NONLABORED, O2 AT 2LPM VIA NC WITH SAT OF 97%, HEEL PROTECTORS IN USE, PT REPOSITIONED/TURNED FEET AND L HAND ELEVATED ON PILLOWS, NOTE SWELLING TO L HAND HAS DECREASED SINCE START OF SHIFT, PRICE LISTER IN USE WITH SR NOTED, VITALS BEING MONITORED. DRESSINGS INTACT TO ALL WOUNDS. WILL MONITOR CLOSELY, RAILS UP X3, BED IN LOW POSITION.
--- NOTE | 2018-04-14 04:16 | NUR ---
PT RESTING IN BED WITH EYES CLOSED, NO S/S OF PAIN OR DISTRESS NOTED, RESP RATE NONLABORED/NORMAL, O2 AT 2LPM VIA NC WITH SAT OF 98%, 16F MONTENEGRO PATENT DRAINING TO BEDSIDE, 22G IV LOCK INTACT TO L AC WITH NO PROBLEMS NOTED TO SITE, TRANSFORMATION SPECIALIST IN USE. REPOSITIONED AND TURNED TO L SIDE, L HAND AND FEET ELEVATED ON PILLOWS, DRESSINGS DRY AND INTACT TO WOUNDS ON BOTH ARMS R FOOT AND LEG BUTTOCKS. PT GETS VERY ANXIOUS WHEN STAFF STARTS TO TURN HER AND ALWAYS STATES THAT SHE IS GONNA FALL OFF THE BED, PT REASSURED, PT ALSO REPEATEDLY ASKING "DO I HAVE TO BE TURNED AGAIN?" AND ASKING WHY. PT EDUCATED MULTIPLE TIMES ABOUT ALL OF HER CARE WHILE IN STORAGE RECEIPT POSTER'S CARE. PT PUSHES AGAINST BED RAIL WHILE 3 STAFF MEMBERS TURN HER. WILL MONITOR, RAILS UP, BED IN LOW POSITION.
--- NOTE | 2018-04-14 05:53 | NUR ---
PT RESTING QUIETLY IN BED WITH EYES CLOSED, NO S/S OF PAIN OR DISTRESS NOTED, IV LOCK INTACT WITH NO PROBLEMS NOTED TO SITE, O2 AT 2LPM VIA NC WITH SAT OF 99%, RESP RATE NONLABORED 16, MONTENEGRO PATENT DRAINING TO BEDSIDE, FEET ELEVATED ON PILLOW, WILL REPOSITION PT, VITALS STABLE, WILL MONITOR, RAILS UP X3, BED IN LOW POSITION.
--- NOTE | 2018-04-14 10:25 | NUR ---
DR. ANGIE MUÑOZ NOTIFIED AND VERBALIZED UNDERSTANDING OF PT'S C/O PAIN IN HER EXTREMITIES AT 1015.
--- NOTE | 2018-04-14 10:31 | NUR ---
RECIEVED ORDERS FOR PT TO RETURN TO [facility]. ALSO CALLED [facility] NURSE AT [place] [place] TO COME AND SEE PT. WILL RETURN PT TO [facility] AFTER WOUND CARE DONE.
--- NOTE | 2018-04-14 11:30 | NUR ---
CALLED REPORT TO GUILHERME AT THE [facility]. ASSISTED PATIENT WITH TURNNING CHANGED DRESSING TO ARM LEGS AND RIGHT HEEL. CHANGED TO DRESSING TO BUTTOCKS WOUNDS CLEANED. APPLIED SILVADENE WITH NON STICK DRESSING AND WRAPPED WITH KERLEX. NOTED WHEN TURNING PATIENT SHE WAS CALLING OUT. INC LARGE AMOUNT SOFT BROWN STOOL. JOI AREA BUTTOCKS CLEANED AND REDRESSED. WOUNDS ON BUTTOCKS. PT RECIEVED AM CARE WASHED OFF WITH THERAWORK WIPES JOI CARE DONE UP IN BED. REMOVED IV HEP-LOCK LEFT AC CATH INTACT NO REDNESS NO SWELLING AT SITE. CHART ALONG WITH MAR COPIED TO SEND WITH PATIENT.
--- NOTE | 2018-04-14 12:24 | NUR ---
PCT HERE ASSISTED PT TO CHAIR. PATIENT DISCHARGED TO [facility].
[2018-04-14] MEDS ORDERED: PANTOPRAZOLE 40MG TA PO (12:49)
[2018-04-14] MEDS ORDERED: ENOX40IN SC (12:50)
[2018-04-14] MEDS ORDERED: PRED10TA27 PO (12:52)
[2018-04-14] MEDS ORDERED: DIFLUCAN50 MG PO (12:53)
[2018-04-14] MEDS ORDERED: NYST100016 TOP (12:54)
[2018-04-14] MEDS ORDERED: SILVADENE1 % EX (12:57)
[2018-04-14] MEDS ORDERED: HYDROXYZ HCL50 MG PO (13:00)
[2018-04-14] MEDS ORDERED: FINGERSTIX (13:02)
--- NOTE | 2018-04-14 16:00 | NUR ---
CALLED PT'S DAUGHTER, OUT OF SCHOOL AT THIS TIME. INFORMED HER THAT WE HAD MOVED HER MOM BACK TO [facility]. CALLED SERENA
[2018-04-20] MEDS ORDERED: ONDA4TAB3 PO (09:32)
[2018-04-21] MEDS ORDERED: LAMICTAL25 MG PO (07:03)
[2018-04-21] MEDS ORDERED: PANTOPRAZOLE 40MG TA PO (07:03)
[2018-04-21] MEDS ORDERED: ARIPIPRAZOLE30 MG PO (07:03)
[2018-04-21] MEDS ORDERED: CARV3.12 PO (07:04)
[2018-04-21] MEDS ORDERED: AMLODIPINE BESYLATE PO (07:04)
[2018-04-21] MEDS ORDERED: ASCO500T18 PO (07:04)
[2018-04-21] MEDS ORDERED: DUONEB 0.5-2.5MG/3ML INH (07:05)
[2018-04-21] MEDS ORDERED: DOCU100C10 PO (07:05)
[2018-04-21] MEDS ORDERED: DIVALPROEX500 M1 PO (07:05)
[2018-04-21] MEDS ORDERED: INSUINJ20 SC (07:07)
[2018-04-21] MEDS ORDERED: METOCLOPRAMIDE O5 MG PO (07:08)
[2018-04-21] MEDS ORDERED: MULTTAB52 PO (07:11)
[2018-04-21] MEDS ORDERED: [UNRECOGNIZED DRUG - CODE] TOP (07:11)
[2018-04-21] MEDS ORDERED: NYST100016 TOP (07:11)
[2018-04-21] MEDS ORDERED: SILVADENE1 % EX (07:12)
[2018-04-21] MEDS ORDERED: POLYETH GLYC3350 NF PO (07:12)
[2018-04-21] MEDS ORDERED: PRED10TA27 PO (07:12)
[2018-04-21] MEDS ORDERED: ZINC220C4 PO (07:13)
== END 2018-04-14 12:30 | disposition other institution (70) | DRG 189 ==
LOC: ICU 16:11
PROVIDERS: Emergency Medicine; ADMIT Family Medicine
DX: J96.02 Acute respiratory failure with hypercapnia (principal); E27.1 Primary adrenocortical insufficiency; F31.64 Bipolar disorder, current episode mixed, severe, with psychotic features; G40.802 Other epilepsy, not intractable, without status epilepticus; J44.1 Chronic obstructive pulmonary disease with (acute) exacerbation; I25.10 Atherosclerotic heart disease of native coronary artery without angina pectoris; E11.9 Type 2 diabetes mellitus without complications; I10 Essential (primary) hypertension; I69.891 Dysphagia following other cerebrovascular disease; R13.19 Other dysphagia; E78.49 Other hyperlipidemia
CPT/HCPCS: 36600; 80053; 81000; 82805; 85007; 85027; 93005; 94640; 94664; 94760; J0696; J1450; J1650; J2175; J2405; J3490; Q9963